=== PATIENT | female | born 1965 | race Caucasian/White ===

== ENCOUNTER 2016-11-02 11:02 | Day surgery (SDC) | payer OTHER ==
[~2016-11-02] VITALS: Ht 154.9 cm; Wt 80.0 kg
[~2016-11-02 11:02] MED LIST: AUGMENTIN500 MG PO; CLARITIN10 MG PO; ENDOCET 5-3251 EACH PO; MOTRIN800 MG PO
[2016-11-02 11:50] VITALS: BP 138/63
[2016-11-02] MEDS ORDERED: NORCO 5/3251 TABLET PO (15:32)
[2016-11-02 17:15] VITALS: BP 119/66
[2016-11-02 18:15] VITALS: BP 120/68
[2016-11-02 19:10] VITALS: BP 131/70
== END 2016-11-02 19:31 | disposition home or self-care (01) ==
LOC: SDC 11:02
PROC: 0FT44ZZ Resection of Gallbladder, Percutaneous Endoscopic Approach (ICD-10-PCS; principal; 2016-11-02)
DX: K80.10 Calculus of gallbladder with chronic cholecystitis without obstruction (principal); F41.9 Anxiety disorder, unspecified; Z80.3 Family history of malignant neoplasm of breast
CPT/HCPCS: 88304; C1769; J0131; J0330; J1100; J1170; J2250; J2405; J2710; J3010; Q0175; S0020